=== PATIENT | male | born 1995 ===

== ENCOUNTER 2017-10-02 19:35 | Emergency (ER) | payer OTHER ==
[2017-10-02] MEDS ORDERED: Sodium Chloride 0.9% 1,000 ML IV STA (20:16)
[2017-10-02] MEDS ORDERED: Promethazine DM 12.5 mg-30 mg/10 ml Syrup PO STA (20:17)
[2017-10-02] MEDS ORDERED: Promethazine 6.25 MG/5 ML CUP ONE (20:27)
--- NOTE | 2017-10-02 20:36 | ED PDOC ---
HPI: Abdomen Time Seen by Provider: 10/02/17 19:53 Chief Complaint (Nursing): Fever Chief Complaint (Provider): Cough History Per: Patient History/Exam Limitations: no limitations Onset/Duration Of Symptoms: Days (x14) Current Symptoms Are (Timing): Still Present Additional Complaint(s): 22 y/o male with no significant PMHx presents to the ED complaining of a white phlegm producing cough associated with sore throat, rhinorrhea, malaise, fatigue , a subjective fever (onset one week ago that has now resolved) and vomiting, onset two weeks ago. Patient states he only vomited yesterday. Patient reports last episode of vomit also looked like whitish sputum. Patient denies vomiting today but reports cough is now associated with intermittent epigastric pain. Patient is concerned because when he vomited for the last time yesterday, he thought he saw a worm in his vomit. Patient states he has tolerated PO since his last episode of vomiting. Additionally, patient reports that since being sick, he continues to go to the gym and work out. Patient states he has unintentionally lost 6 pounds within the last two weeks. PMD: Non [facility] Provider (in [place], [place]) Past Medical History Reviewed: Historical Data, Nursing Documentation, Vital Signs Vital Signs: Last Vital Signs Temp 98.7 F 10/02/17 19:40 Pulse 58 L 10/02/17 19:40 Resp 18 10/02/17 19:40 BP 129/78 10/02/17 19:40 Pulse Ox 96 10/02/17 22:01 - Medical History PMH: No Chronic Diseases - Surgical History Surgical History: No Surg Hx - Family History Family History: States: Unknown Family Hx - Social History Current smoker - smoking cessation education provided: Yes (Occasionally) Alcohol: Social Drugs: Denies - Home Medications Home Medications: Ambulatory Orders Medication Instructions Recorded Azithromycin [Zithromax] 250 mg PO DAILY #6 dose 10/02/17 Promethazine DM [Phenergan DM 10 ml PO Q8 PRN #120 dose 10/02/17 Syrup] - Allergies Allergies/Adverse Reactions: Allergies Allergy/AdvReac Type Severity Reaction Status Date / Time No Known Allergies Allergy Verified 10/02/17 19:48 Review of Systems ROS Statement: Except As Marked, All Systems Reviewed And Found Negative (as per HPI) Constitutional: Positive for: Fever, Weakness, Malaise, Other (Fatigue) ENT: Positive for: Nose Discharge, Throat Pain (Sore) Respiratory: Positive for: Cough Gastrointestinal: Positive for: Vomiting, Abdominal Pain Physical Exam - Reviewed Nursing Documentation Reviewed: Yes Vital Signs Reviewed: Yes - Physical Exam Appears: Positive for: No Acute Distress Head Exam: Positive for: ATRAUMATIC, NORMOCEPHALIC Skin: Positive for: Warm, Dry Eye Exam: Positive for: EOMI, PERRL ENT: Negative for: Pharyngeal Erythema, Tonsillar Exudate Neck: Positive for: Painless ROM, Supple Cardiovascular/Chest: Positive for: Regular Rate, Rhythm, Chest Non Tender. Negative for: Murmur Respiratory: Positive for: Normal Breath Sounds. Negative for: Wheezing Gastrointestinal/Abdominal: Positive for: Normal Exam, Tenderness (Mild Epigastric Tenderness). Negative for: Mass, Guarding, Rebound Back: Positive for: Normal Inspection Extremity: Positive for: Normal ROM. Negative for: Deformity Lymphatic: Negative for: Adenopathy Neurologic/Psych: Positive for: Alert. Negative for: Motor/Sensory Deficits - Laboratory Results Result Diagrams: 10/02/17 20:45 10/02/17 20:45 - ECG O2 Sat by Pulse Oximetry: 96 (RA) Pulse Ox Interpretation: Normal Medical Decision Making Medical Decision Making: Time: 2019 Impression: Cough and vomiting Differentials include but not limited to viral syndrome, pneumonia, mono, dehydration and electrolyte abnormality Plan: -- CMP -- ED Urine Dipstick -- CBC with differentials -- CXR Two Views -- Sodium Chloride IV 1000 mls/hr -- Pepcid 20 mg IVP -- Phenergan DM Syrup 10 ml PO -- Zofran Inj 4 mg IVP -- Blood Culture -- IV Insertion -- Infectious Mononucleosis Labs demonstrate leukocytosis, otherwise no clinically significant abnormalities. CXR no infiltrate/effusion DW pt findings. Will treat as bronchitis, prolonged. Rx Zpack and promethazine DM. 1-2 day followup with PMD or [facility]. Scribe Attestation: Documented by Harrison Kwong acting as a scribe for Dr. Celeste Gamboa. Provider Scribe Attestation: All medical record entries made by the Scribe were at my direction and personally dictated by me. I have reviewed the chart and agree that the record accurately reflects my personal performance of the history, physical exam, medical decision making, and the department course for this patient. I have also personally directed, reviewed, and agree with the discharge instructions and disposition. Disposition - Clinical Impression Clinical Impression: Bronchitis - Disposition Referrals: [facility] [Outside] (FOLLOW UP WITH YOUR DOCTOR OR [facility] IN 1-2 DAYS FOR REEVALUATION) Disposition: Routine/Home Disposition Time: 21:45 Condition: STABLE Additional Instructions: REST AND DRINK PLENTY OF HYDRATING FLUIDS AVOID STRENUOUS ACTIVITY UNTIL YOU ARE FEELING BETTER. Prescriptions: Azithromycin [Zithromax] 250 mg PO DAILY #6 dose Promethazine DM [Phenergan DM Syrup] 10 ml PO Q8 PRN #120 dose PRN Reason: cough Instructions: Acute Bronchitis, Adult (DC) Forms: [employer] ([place])
[2017-10-02 20:53] LABS: BASO # 0.1 K/uL (0.0-0.2); BASO % 0.5 % (0.0-2.0); EOS # 0.4 K/uL (0.0-0.7); EOS % 3.2 % (0.0-4.0); LYMPH # 1.8 K/uL (1.0-4.3); LYMPH % 14.9 % (20.0-40.0); MEAN CELL VOLUME 90.4 fl (80.0-94.0); MEAN CORPUSCULAR HEMOGLOBIN 30.1 pg (27.0-31.0); MEAN CORPUSCULAR HGB CONC 33.3 g/dL (33.0-37.0); MEAN PLATELET VOLUME 8.6 fl (7.2-11.7); MONO # 0.7 K/uL (0.0-0.8); MONO % 5.7 % (0.0-10.0); NEUT # 9.2 K/uL (1.8-7.0); NEUT % 75.7 % (50.0-75.0); NRBC % 0.1 % (0.0-0.0); RBC 4.97 Mil/uL (4.40-5.90); WHITE BLOOD COUNT 12.1 K/uL (4.8-10.8)
[2017-10-02 21:14] LABS: ALB/GLOB RATIO 1.4 (1.0-2.1); ALBUMIN 4.4 g/dL (3.5-5.0); ALT/SGPT 30 U/L (21-72); AST/SGOT 29 U/L (17-59); BLOOD UREA NITROGEN 13 mg/dl (9-20); CALCIUM 9.6 mg/dL (8.4-10.2); GFR NON-AFRICAN AMERICAN > 60
[2017-10-02 22:19] VITALS: BP 127/73; PULSE 79; RESP 16; TEMP 99; O2SAT 100
--- NOTE | 2017-10-03 09:42 | RAD ---
Date of service: 10/02/2017 HISTORY: coughing and vomiting COMPARISON: No prior. TECHNIQUE: Chest PA and lateral FINDINGS: LUNGS: No active pulmonary disease. PLEURA: No significant pleural effusion identified. No pneumothorax apparent. CARDIOVASCULAR: Normal. OSSEOUS STRUCTURES: No significant abnormalities. VISUALIZED UPPER ABDOMEN: Normal. OTHER FINDINGS: None. IMPRESSION: No active disease.
== END 2017-10-02 22:27 | disposition home or self-care (01) ==
LOC: H.ER 19:35
DX: J40 Bronchitis, not specified as acute or chronic (principal); F17.200 Nicotine dependence, unspecified, uncomplicated
CPT/HCPCS: 71046; 80053; 85025; 86308; 87040; 96374; 96375; 99283; J2405